=== PATIENT | female | born 1970 | race Caucasian/White ===

== ENCOUNTER → 2016-06-20 | Outpatient (CLI) | payer BC ==
[~2016-06-20] MED LIST: BCPILLS PO
== END | disposition home or self-care (01) ==
LOC: C.PAPS 10:10
PROVIDERS: ATTEND Obstetrics & Gynecology
DX: Z01.419 Encounter for gynecological examination (general) (routine) without abnormal findings (principal)

== ENCOUNTER → 2016-11-21 | Outpatient (CLI) | payer BC ==
--- NOTE | 2016-11-22 15:22 | MAMMOGRAPHY REPORT ---
BILATERAL DIGITAL SCREENING MAMMOGRAM WITH CAD: 11/22/2016 CLINICAL HISTORY: Routine screening. Patient has no complaints. TECHNIQUE: Current study was also evaluated with a Computer Aided Detection (CAD) system. Bilateral CC and MLO views were obtained. COMPARISON: Comparison is made to exams dated: 11/25/2014 ultrasound, 11/25/2014 mammogram, 05/10/2014 ultrasound, 05/10/2014 mammogram, 11/02/2013 ultrasound, and 03/16/2004 mammogram - [facility]. BREAST COMPOSITION: The tissue of both breasts is extremely dense, which lowers the sensitivity of m ammography. FINDINGS: No suspicious masses, calcifications, or areas of architectural distortion are noted in ei ther breast. There has been no significant interval change compared to prior exams. Scattered bilater al benign-appearing calcifications are not significantly changed. Oval circumscribed 2.4 cm mass in the left superior anterior breast is again noted, and was shown to represent a benign cyst on the or 2014 ultrasound exam. IMPRESSION: ACR BI-RADS CATEGORY 2: BENIGN There is no mammographic evidence of malignancy. A 1 year screening mammogram is recommended. The pa tient will receive written notification of the results. Approximately 10% of breast cancers are not detected with mammography. A negative mammographic report should not delay biopsy if a clinically suggestive mass is present. Minerva Alcazar M.D. ah/:11/22/2016 13:53:22 L D Rn: Laury VARGAS)([place]), [facility] letter sent: Normal 1/2 BI-RADS Code: ACR BI-RADS Category 2: Benign
== END | disposition home or self-care (01) ==
LOC: C.MAMM 16:04
PROVIDERS: ATTEND Obstetrics & Gynecology
DX: Z12.31 Encounter for screening mammogram for malignant neoplasm of breast (principal)

== ENCOUNTER → 2017-07-22 | Outpatient (CLI) | payer OTHER | END | disposition home or self-care (01) | LOC: C.PAPS 12:12 | PROVIDERS: ATTEND Obstetrics & Gynecology | DX: Z01.419 Encounter for gynecological examination (general) (routine) without abnormal findings (principal); Z87.42 Personal history of other diseases of the female genital tract ==

== ENCOUNTER → 2017-07-29 | Outpatient (CLI) | payer OTHER ==
--- NOTE | 2017-07-30 09:23 | MAMMOGRAPHY REPORT ---
UNILATERAL LEFT DIGITAL DIAGNOSTIC MAMMOGRAM TOMOSYNTHESIS WITH CAD AND TARGETED LEFT ULTRASOUND: 07/11 CLINICAL HISTORY: The patient reports that her physician felt an increasing palpable lump in the left breast during a routine breast exam. The provider order reports that the mass measures 3 cm in the left breast at 12 to 1:00. TECHNIQUE: Breast tomosynthesis in addition to standard 2D mammography was performed. Current study was also evaluated with a Computer Aided Detection (CAD) system. Left CC and MLO 2D and tomosynthesi s images were obtained. COMPARISON: Comparison is made to exams dated: 11/22/2016 mammogram, 11/21/2015 mammogram, 11/25/2014 m ammogram, 10/28/2013 mammogram, and 03/16/2004 mammogram - [facility]. BREAST COMPOSITION: The tissue of the left breast is extremely dense, which lowers the sensitivity o f mammography. FINDINGS: There is a partially circumscribed and partially obscured oval mass measuring approximately 4.1 cm within the left 12:00 breast. The mass is increased in size compared to prior exams. The re mainder of the left breast is not significantly changed, without suspicious masses, calcifications, o r areas of architectural distortion noted. Scattered benign-appearing calcifications are not signifi cantly changed. Targeted ultrasound was performed of the area of the increasing palpable left breast lump. In the le ft 12:00 periareolar breast, there is an oval circumscribed anechoic mass which measures 3.7 x 0.9 x 3.8 cm. This corresponds with the increasing mammographic mass as well as the palpable lump and is c onsistent with a benign simple cyst. Other smaller anechoic benign cysts were seen in the left 12:00 breast during the exam. IMPRESSION: ACR BI-RADS CATEGORY 2: BENIGN, TARGETED ULTRASOUND ACR BI-RADS CATEGORY 2: BENIGN The palpable lump in the left 12:00 breast corresponds with a benign 3.8 cm simple cyst on ultrasound . There is no mammographic or targeted sonographic evidence of malignancy. Recommend clinical follo w-up, and recommend routine bilateral screening mammograms which are due November 2017. The patient has been verbally notified of the results. Approximately 10% of breast cancers are not detected with mammography. A negative mammographic report should not delay biopsy if a clinically suggestive mass is present. Minerva Alcazar M.D. ah/:07/29/2017 13:42:32 Is Manager: Flavio MATTHEWS(Norma)(M), [facility] letter sent: Normal 1/2 BI-RADS Code: ACR BI-RADS Category 2: Benign Ultrasound BI-RADS: ACR BI-RADS Category 2: Benign
== END | disposition home or self-care (01) ==
LOC: C.MAMM 13:13
PROVIDERS: ATTEND Obstetrics & Gynecology
DX: N60.02 Solitary cyst of left breast (principal)